=== PATIENT | male | born 1950 | race Caucasian/White ===

== ENCOUNTER 2016-05-12 19:25 | Emergency (ER) | payer OTHER ==
[~2016-05-12] VITALS: Ht 182.9 cm; Wt 92.6 kg
[2016-05-12 19:27] VITALS: BP 187/99
[2016-05-12 19:57] LABS: HEMOGLOBIN 16.3 g/dL (13.7-18.0)
[2016-05-12] MEDS ORDERED: ONDANSETRON 2MG/ML, 2ML IVPush ONE (20:00)
[2016-05-12] MEDS ORDERED: MORPHINE SULFATE 4 MG/ML, 1ML IVPush PRN (20:00)
[2016-05-12] MEDS ORDERED: SODIUM CHLORIDE FLUSH 10ML SYR IVF ONE (20:00)
[2016-05-12] MEDS ORDERED: KETOROLAC 30 MG/1 ML IVPush ONE (20:00)
[2016-05-12 20:07] LABS: BLOOD UREA NITROGEN 22 mg/dL (7-18)
[2016-05-12] MEDS ORDERED: ONDANSETRON 2MG/ML, 2ML ONE (20:38)
[2016-05-12] MEDS ORDERED: KETOROLAC 30 MG/1 ML ONE (20:38)
[2016-05-12] MEDS ORDERED: MORPHINE SULFATE 4 MG/ML, 1ML ONE (20:38)
== END 2016-05-12 22:25 | disposition home or self-care (01) ==
LOC: ED 22:20
DX: N20.1 Calculus of ureter (principal); I10 Essential (primary) hypertension; N40.0 Benign prostatic hyperplasia without lower urinary tract symptoms
CPT/HCPCS: 36415; 74000; 76770; 80048; 81003; 82040; 85025; 96374; 96375; 99285; J1885; J2405